=== PATIENT | female | born 1945 | race Caucasian/White ===

== ENCOUNTER → 2018-12-26 11:20 | Outpatient (CLI) | payer SELFPAY ==
[2018-12-26 10:48] VITALS: BMI 35.9
[2018-12-26 13:48] LABS: AST(SGOT) 34 U/L (15-37); Alanine Aminotransfer ALT/SGPT 35 U/L (13-56); Albumin, Serum 3.6 g/dL (3.2-5.0); Alkaline Phosphatase 60 U/L (45-117); Bilirubin, Direct 0.23 mg/dL (0.00-0.30); Cholesterol 178 mg/dL (200); Globulin 4.9 g/dL (2.2-4.2); High Density Lipoprotein 70 mg/dL; Protein, Total 8.5 g/dL (6.4-8.2); Triglycerides 68 mg/dL; Very Low Density Lipoprotein 14 mg/dL (5-40)
== END ==
PROVIDERS: Family Provider Physician Assistant; PCP Physician Assistant; Referring Provider Internal Medicine Cardiovascular Disease; Visit Provider Internal Medicine Cardiovascular Disease
DX: E78.2 Mixed hyperlipidemia (principal)
CPT/HCPCS: 36415; 80061; 80076

== ENCOUNTER → 2019-06-27 | Outpatient (CLI) | payer OTHER, SELFPAY ==
[2018-12-26 10:48] VITALS: BMI 35.9
[2019-06-27 08:53] LABS: AST(SGOT) 19 U/L (15-37); Alanine Aminotransfer ALT/SGPT 20 U/L (13-56); Albumin, Serum 3.2 g/dL (3.2-5.0); Alkaline Phosphatase 58 U/L (45-117); Bilirubin, Direct 0.18 mg/dL (0.00-0.30); Cholesterol 158 mg/dL (200); Globulin 4.8 g/dL (2.2-4.2); High Density Lipoprotein 52 mg/dL; Triglycerides 93 mg/dL; Very Low Density Lipoprotein 19 mg/dL (5-40)
== END | disposition home or self-care (01) ==
LOC: LAB 07:45
PROVIDERS: Family Provider Physician Assistant; PCP Physician Assistant; Referring Provider Internal Medicine Cardiovascular Disease; Visit Provider Internal Medicine Cardiovascular Disease
DX: E07.89 Other specified disorders of thyroid (principal); E78.5 Hyperlipidemia, unspecified; I10 Essential (primary) hypertension; I48.2 Chronic atrial fibrillation; I63.9 Cerebral infarction, unspecified; Z86.73 Personal history of transient ischemic attack (TIA), and cerebral infarction without residual deficits
CPT/HCPCS: 36415; 80061; 80076

== ENCOUNTER → 2020-06-25 07:53 | Outpatient (CLI) | payer OTHER, SELFPAY ==
[2019-06-27 09:13] VITALS: BMI 34.5
[2020-06-25 09:45] LABS: AST(SGOT) 21 U/L (15-37); Alanine Aminotransfer ALT/SGPT 16 U/L (13-56); Albumin, Serum 3.3 g/dL (3.2-5.0); Alkaline Phosphatase 60 U/L (45-117); Bilirubin, Direct 0.16 mg/dL (0.00-0.30); Cholesterol 176 mg/dL (200); Globulin 4.7 g/dL (2.2-4.2); High Density Lipoprotein 64 mg/dL; Triglycerides 83 mg/dL; Very Low Density Lipoprotein 17 mg/dL (5-40)
[2020-06-25 16:36] LABS: T4 Free Direct 1.27 ng/dL (0.76-1.46); Thyroid Stim Hormone (TSH) 5.88 uIU/mL (0.358-3.74)
== END ==
PROVIDERS: PCP Physician Assistant; Referring Provider Internal Medicine Cardiovascular Disease; Visit Provider Internal Medicine Cardiovascular Disease
DX: E78.5 Hyperlipidemia, unspecified (principal)
CPT/HCPCS: 36415; 80061; 80076; 84439; 84443

== ENCOUNTER → 2020-10-30 09:23 | Outpatient (CLI) | payer OTHER, SELFPAY ==
[2020-07-09 13:21] VITALS: BMI 31.2
[2020-10-30 13:02] LABS: Free T3 2.4 pg/mL (2.18-3.98); T4 Free Direct 1.23 ng/dL (0.76-1.46); Thyroid Stim Hormone (TSH) 7.04 uIU/mL (0.358-3.74)
== END ==
LOC: IMMUN 09:24 → LAB 13:43
PROVIDERS: PCP Physician Assistant; Visit Provider Internal Medicine
DX: E03.9 Hypothyroidism, unspecified (principal)
CPT/HCPCS: 36415; 84439; 84443; 84481

== ENCOUNTER → 2020-12-09 11:23 | Outpatient (CLI) | payer OTHER, SELFPAY ==
[2020-07-09 13:21] VITALS: BMI 31.2
[2020-12-09 13:40] LABS: Thyroid Stim Hormone (TSH) 2.63 uIU/mL (0.358-3.74)
== END ==
PROVIDERS: PCP Physician Assistant; Visit Provider Internal Medicine
DX: E03.9 Hypothyroidism, unspecified (principal)
CPT/HCPCS: 36415; 84443

== ENCOUNTER → 2021-07-08 11:37 | Outpatient (CLI) | payer SELFPAY ==
[2021-07-08 15:44] LABS: Free T3 2.5 pg/mL (2.18-3.98); T4 Free Direct 1.33 ng/dL (0.76-1.46); Thyroid Stim Hormone (TSH) 3.14 uIU/mL (0.358-3.74)
== END ==
PROVIDERS: PCP Internal Medicine; Referring Provider Internal Medicine; Visit Provider Internal Medicine
DX: E03.9 Hypothyroidism, unspecified (principal)
CPT/HCPCS: 36415; 84439; 84443; 84481

== ENCOUNTER 2022-01-07 10:42 | Outpatient (CLI) | payer SELFPAY ==
[2022-01-07 12:24] LABS: Absolute Lymphocyte Count 0.62 X10^3/uL (0.83-4.51); Absolute Neutrophil Count 4.6 X10^3/uL (2.0-7.7); Basophil# 0.03 X10^3/uL; Basophil% 0.5 % (0-1); Eosinophil# 0.07 X10^3/uL; Eosinophils% 1.2 % (0-5); Hematocrit 42.3 % (37-47); Hemoglobin 13.7 g/dL (12.0-15.0); Lymphocyte # 0.62 X10^3/ul (0.83-4.51); Lymphocyte % 10.5 % (19-41); Mean Corp Hgb Conc 32.4 g/dL (32-36); Mean Corpuscular Hgb 29.8 pg (27.0-32.0); Mean Platelet Vol. 10.7 fl (6.2-12.0); Monocyte% 10.2 % (0-10); NRBC Flagged by Analyzer 0 % (0-5); Neutrophil # 4.55 X10^3/uL (2.7-7.7); Neutrophil % 77.3 % (47-70); Platelet Count 323 K/mm3 (150-450); RBC Distribution Width CV 13.8 % (11.6-14.6); White Blood Count 5.9 K/mm3 (4.4-11.0)
[2022-01-07 12:43] LABS: Vitamin D,25 Hydroxy 41.1 ng/mL
[2022-01-07 13:15] LABS: ALB/GLOB Ratio 0.7 RATIO (0.9-2.4); AST(SGOT) 18 U/L (15-37); Alanine Aminotransfer ALT/SGPT 22 U/L (13-56); Albumin, Serum 3.3 g/dL (3.2-5.0); Alkaline Phosphatase 62 U/L (45-117); Anion Gap 5 (5-15); BUN 15 mg/dL (7-18); BUN/Creat Ratio 17.1 RATIO (10-20); Calcium,Total 9.5 mg/dL (8.5-10.1); Chloride 100 mmol/L (98-107); Creatinine, Serum 0.88 mg/dL (0.55-1.02); EST Glomerular Filtration Rate 66 mL/min (>60); Est Glom Filt Rate - Afr Amer 80 mL/min (>60); Free T3 2.5 pg/mL (2.18-3.98); Globulin 4.9 g/dL (2.2-4.2); Glucose 96 mg/dL (74-106); Potassium 4.6 mmol/L (3.5-5.1); Protein, Total 8.2 g/dL (6.4-8.2); Sodium Level 134 mmol/L (136-145); T4 Free Direct 1.31 ng/dL (0.76-1.46)
== END 2022-01-07 23:59 | disposition home or self-care (01) ==
LOC: BIMLAB 10:42
PROVIDERS: PCP Internal Medicine; Referring Provider Internal Medicine; Visit Provider Internal Medicine
DX: I48.11 Longstanding persistent atrial fibrillation (principal); I10 Essential (primary) hypertension; E78.5 Hyperlipidemia, unspecified; E03.9 Hypothyroidism, unspecified; Z86.73 Personal history of transient ischemic attack (TIA), and cerebral infarction without residual deficits
CPT/HCPCS: 36415; 80053; 82306; 84439; 84443; 84481; 85025

== ENCOUNTER → 2022-07-13 | Outpatient (CLI) | payer OTHER, SELFPAY ==
[2022-07-13 10:53] LABS: Absolute Lymphocyte Count 0.91 X10^3/uL (0.83-4.51); Absolute Neutrophil Count 6.4 X10^3/uL (2.0-7.7); Basophil# 0.05 X10^3/uL; Basophil% 0.6 % (0-1); Eosinophil# 0.09 X10^3/uL; Eosinophils% 1.1 % (0-5); Hematocrit 38.7 % (37-47); Hemoglobin 12.6 g/dL (12.0-15.0); Lymphocyte # 0.91 X10^3/ul (0.83-4.51); Lymphocyte % 11.1 % (19-41); Mean Corp Hgb Conc 32.6 g/dL (32-36); Mean Corpuscular Hgb 29.9 pg (27.0-32.0); Mean Corpuscular Volume 91.9 fL (81-99); Mean Platelet Vol. 9.7 fl (6.2-12.0); Monocyte# 0.69 X10^3/uL; Monocyte% 8.4 % (0-10); NRBC Flagged by Analyzer 0 % (0-5); Neutrophil # 6.41 X10^3/uL (2.7-7.7); Neutrophil % 78.6 % (47-70); Platelet Count 371 K/mm3 (150-450); RBC Distribution Width CV 14.4 % (11.6-14.6); RBC Distribution Width SD 47.8 fl (35.1-43.9); Red Blood Count 4.21 M/mm3 (4.2-5.4); White Blood Count 8.2 K/mm3 (4.4-11.0)
[2022-07-13 11:24] LABS: ALB/GLOB Ratio 0.6 RATIO (0.9-2.4); AST(SGOT) 18 U/L (15-37); Alanine Aminotransfer ALT/SGPT 17 U/L (13-56); Alkaline Phosphatase 52 U/L (45-117); Anion Gap 5 (5-15); BUN 25 mg/dL (7-18); BUN/Creat Ratio 30.7 RATIO (10-20); Calcium,Total 9.1 mg/dL (8.5-10.1); Chloride 102 mmol/L (98-107); Creatinine, Serum 0.82 mg/dL (0.55-1.02); EST Glomerular Filtration Rate 72 mL/min (>60); Est Glom Filt Rate - Afr Amer 87 mL/min (>60); Free T3 2.5 pg/mL (2.18-3.98); Globulin 5.1 g/dL (2.2-4.2); Glucose 94 mg/dL (74-106); Potassium 4.3 mmol/L (3.5-5.1); Protein, Total 8.1 g/dL (6.4-8.2); Sodium Level 136 mmol/L (136-145); T4 Free Direct 1.19 ng/dL (0.76-1.46); Thyroid Stim Hormone (TSH) 3.26 uIU/mL (0.358-3.74)
== END | disposition home or self-care (01) ==
LOC: LAB 09:53
PROVIDERS: PCP Internal Medicine; Referring Provider Internal Medicine; Visit Provider Internal Medicine
DX: I48.11 Longstanding persistent atrial fibrillation (principal); I10 Essential (primary) hypertension; E78.5 Hyperlipidemia, unspecified; E03.9 Hypothyroidism, unspecified; Z86.73 Personal history of transient ischemic attack (TIA), and cerebral infarction without residual deficits
CPT/HCPCS: 36415; 80053; 84439; 84443; 84481; 85025

== ENCOUNTER → 2023-06-30 | Outpatient (CLI) | payer OTHER, SELFPAY ==
[2023-06-30 12:33] LABS: Absolute Lymphocyte Count 0.82 X10^3/uL (0.83-4.51); Absolute Neutrophil Count 3.9 X10^3/uL (2.0-7.7); Basophil# 0.04 X10^3/uL; Basophil% 0.7 % (0-1); Eosinophils% 1.8 % (0-5); Hematocrit 41.1 % (37-47); Hemoglobin 12.9 g/dL (12.0-15.0); Lymphocyte # 0.82 X10^3/ul (0.83-4.51); Lymphocyte % 14.8 % (19-41); Mean Corp Hgb Conc 31.4 g/dL (32-36); Mean Corpuscular Hgb 30.6 pg (27.0-32.0); Mean Corpuscular Volume 97.4 fL (81-99); Mean Platelet Vol. 10.7 fl (6.2-12.0); Monocyte# 0.65 X10^3/uL; Monocyte% 11.7 % (0-10); NRBC Flagged by Analyzer 0 % (0-5); Neutrophil # 3.92 X10^3/uL (2.7-7.7); Neutrophil % 70.6 % (47-70); Platelet Count 305 K/mm3 (150-450); RBC Distribution Width CV 13.1 % (11.6-14.6); RBC Distribution Width SD 46.1 fl (35.1-43.9); Red Blood Count 4.22 M/mm3 (4.2-5.4); White Blood Count 5.6 K/mm3 (4.4-11.0)
[2023-06-30 12:58] LABS: Vitamin D,25 Hydroxy 39.4 ng/mL
[2023-06-30 13:00] LABS: ALB/GLOB Ratio 0.7 RATIO (0.9-2.4); AST(SGOT) 16 U/L (15-37); Alanine Aminotransfer ALT/SGPT 17 U/L (13-56); Albumin, Serum 3.2 g/dL (3.2-5.0); Alkaline Phosphatase 50 U/L (45-117); Anion Gap 3 (5-15); BUN 22 mg/dL (7-18); BUN/Creat Ratio 20.8 RATIO (10-20); Calcium,Total 9.1 mg/dL (8.5-10.1); Chloride 103 mmol/L (98-107); Cholesterol 175 mg/dL (200); Creatinine, Serum 1.06 mg/dL (0.55-1.02); EST Glomerular Filtration Rate 53 mL/min (>60); Est Glom Filt Rate - Afr Amer 64 mL/min (>60); Free T3 2.2 pg/mL (2.18-3.98); Globulin 4.3 g/dL (2.2-4.2); Glucose 84 mg/dL (74-106); High Density Lipoprotein 52 mg/dL; Potassium 4.3 mmol/L (3.5-5.1); Protein, Total 7.5 g/dL (6.4-8.2); Sodium Level 136 mmol/L (136-145); T4 Free Direct 1.28 ng/dL (0.76-1.46); Thyroid Stim Hormone (TSH) 3.05 uIU/mL (0.358-3.74); Triglycerides 77 mg/dL; Very Low Density Lipoprotein 15 mg/dL (5-40)
== END | disposition home or self-care (01) ==
PROVIDERS: PCP Internal Medicine; Referring Provider Internal Medicine; Visit Provider Internal Medicine
DX: I48.11 Longstanding persistent atrial fibrillation (principal); I10 Essential (primary) hypertension; E78.5 Hyperlipidemia, unspecified; E03.9 Hypothyroidism, unspecified; E55.9 Vitamin D deficiency, unspecified; Z86.73 Personal history of transient ischemic attack (TIA), and cerebral infarction without residual deficits
CPT/HCPCS: 36415; 80053; 80061; 82306; 84439; 84443; 84481; 85025

== ENCOUNTER 2024-01-09 08:30 | Emergency (ER) | payer OTHER, MEDICARE, SELFPAY ==
[2024-01-09] VITALS (10 sets, daily range): BP systolic 61–130; BP diastolic 30–64; PULSE 71–107; RESP 16–30; TEMP 35.9–36.6; O2SAT 23–98; BMI 32.3
--- NOTE | 2024-01-09 08:38 | CT_ITS ---
HISTORY: altered LOC. TECHNIQUE: Multiple axial images were obtained of the head without intravenous contrast. A radiation dose optimization technique was used for this scan. 231 images. COMPARISON: None. FINDINGS: BRAIN PARENCHYMA: Chronic small vessel ischemic gliosis present. Small chronic right frontal parietal, left frontal, and cerebellar infarcts. No acute intra-axial hemorrhage. CSF SPACES: Generalized volume loss. No midline shift or other significant mass effect. No acute extra-axial hemorrhage. OTHER: Intact calvarium. No significant air fluid levels in the paranasal sinuses or mastoid air cells. Bilateral lens resections. CT/Brain/Head without Contrast IMPRESSION: No acute intracranial process identified. Chronic involutional and white matter changes. Old bilateral infarcts. Electronically Signed: Jenae Barnes MD at 9:37 EDT ,
--- NOTE | 2024-01-09 08:39 | EKG12_ITS ---
Test Reason : Blood Pressure : / mmHG Vent. Rate : 099 BPM Atrial Rate : 000 BPM P-R Int : 000 ms QRS Dur : 078 ms QT Int : 386 ms P-R-T Axes : 000 022 003 degrees QTc Int : 495 ms Atrial fibrillation with premature ventricular or aberrantly conducted complexes Prolonged QT Abnormal ECG PROMINENT U WAVE Confirmed by Garret Donnelly ([id number]), newspaper editor RAMA BUTCHER ([id number]) on 01/11/2024 9:08:04 AM Referred By: KATINA Confirmed By:Garret Donnelly
--- NOTE | 2024-01-09 08:40 | EX.ED.DYSGE1 ---
HPI History of Present Illness Chief Complaint: Alt LOC Informant: patient and EMS Narrative Narrative: Patient lives alone and apparently had a fall today, called her family, they came over found her ill weak tired. Right now that is the patient's main complaint that she is just very tired. She denies any pain anywhere. EMS reports that family told them she felt only because the patient told them that she fell. They did not see any signs of injury, when they first evaluated her she appeared fatigued and had actually an elevated blood pressure but as they transported her here, she became hypotensive and hypoxic. There are no other known details. Patient states she had a bowel movement sometime recently but when asked about its consistency or contents, she asks us to ask her vice president investor relations who was not present. She cannot give us any history about recent illness, she denies having any pain anywhere. History is limited due to her being lethargic. [facility] Medical History Arthritis Biatrial enlargement Cataract (lens) fragments in eye following cataract surgery, bilateral Essential (primary) hypertension History of CVA (cerebrovascular accident) (10/2016) Hyperlipidemia Hypothyroidism Longstanding persistent atrial fibrillation Obesity (BMI 30.0-34.9) Seasonal allergies Thyroid mass of unclear etiology Home Medications diltiazem HCl 120 mg capsule,extended release 24 hr 120 mg PO DAILY #90 caps 01/18/23 [Rx Last Taken 01/09/24] levothyroxine 25 mcg tablet 25 mcg PO DAILY #90 tabs 01/18/23 [Rx Last Taken 01/09/24] lisinopril 2.5 mg tablet 2.5 mg PO DAILY #90 tabs 01/18/23 [Rx Last Taken 01/09/24] apixaban 5 mg tablet (Eliquis) 5 mg PO BID #180 tabs 11/08/23 [Rx Last Taken 01/09/24] Allergy/AdvReac Type Severity Reaction Status Date / Time No Known Allergies Allergy Verified 11/02/23 11:30 Family History Father No problems noted. Surgical History History of tonsillectomy and adenoidectomy Social History Smoking Status: Never smoker alcohol intake: never substance use type: does not use caffeine: Yes Type: coffee and tea what type of physical activity do you participate in: none seatbelt use: always do you feel safe at home: Yes ROS ROS ED Review of Systems ROS Unobtainable: other Details: Very limited due to lethargy Constitutional Constitutional ED: Reports fatigue and weakness; Denies headache(s) Cardiovascular Cardiovascular: Denies chest pain Respiratory/Chest Respiratory/Chest: Denies dyspnea Gastrointestinal Gastrointestinal: Denies abdominal pain or nausea Musculoskeletal Musculoskeletal: Denies back pain or neck pain Neurologic Neurologic: Denies headache(s) EXAM Physical Exam Const Vital Signs: 01/09/24 08:31 01/09/24 08:34 01/09/24 08:42 Temperature 97.0 F L Temperature Source Temporal Pulse Rate 87 71 Respiratory Rate 18 Blood Pressure 61/40 L Blood Pressure Mean 47 Blood Pressure Source Blood Pressure Position Blood Pressure Location Pulse Ox 93 96 Oxygen Delivery Method Nasal Cannula Nasal Cannula Oxygen Flow Rate (L/min) 3 3 Fraction of Inspired Oxygen (FIO2) 01/09/24 09:02 01/09/24 10:00 01/09/24 11:00 Temperature 96.6 F L Temperature Source Temporal Pulse Rate 83 92 89 Respiratory Rate 26 H 30 H 16 Blood Pressure 84/33 L 91/30 L 80/50 L Blood Pressure Mean 50 50 60 Blood Pressure Source Blood Pressure Position Blood Pressure Location Pulse Ox 23 92 Oxygen Delivery Method Room Air Nasal Cannula Oxygen Flow Rate (L/min) 3 Fraction of Inspired Oxygen (FIO2) 96.7 01/09/24 12:58 01/09/24 13:00 Temperature 97.2 F L 97.2 F L Temperature Source Temporal Temporal Pulse Rate 99 97 Respiratory Rate 22 H 19 H Blood Pressure 123/54 H 116/64 Blood Pressure Mean 77 81 Blood Pressure Source Monitor Blood Pressure Position Supine Blood Pressure Location Right Arm Pulse Ox 92 92 Oxygen Delivery Method Nasal Cannula Nasal Cannula Oxygen Flow Rate (L/min) 3 Fraction of Inspired Oxygen (FIO2) Positive well nourished and well developed Constitutional Narrative: Lethargic but responds to commands and opens her eyes to voice. General Appearance ED: well developed HEENT Reports TM's clear and nasal mucous membranes and turbinates normal HEENT Narrative: Does not open mouth enough to allow visualization of posterior oropharynx. Lips appear little dry but oral mucous membranes appear moist. No Carey sign. No signs of head trauma. No periorbital ecchymosis or CSF otorhinorrhea. atraumatic Face and Sinus: Negative for facial tenderness Tympanic Membrane ED: Yes TM's clear Eyes PERRL and EOMs intact bilaterally Visual Acuity: other Other Details: no entrapment or pain with extraocular movements Neck full ROM and supple General: Negative for tenderness Chest Wall inspection of chest normal and palpation of chest normal Chest: symmetrical chest wall rise; Negative for crepitus or tenderness Resp normal respiratory effort and clear to auscultation bilaterally Percussion: other equal BS bilat Cardio no murmurs Rhythm: abnormal rhythm irregularly irregular (Without tachycardia) GI normal to inspection, nondistended, normoactive bowel sounds, soft to palpation and non-tender GI Narrative: Rectal nontender good tone. Watery light brown stool specimen sent for Hemoccult. No blood or melena. Back/Spine normal ROM Back/Spine Narrative: No overt signs of trauma normal inspection Cervical Spine: Negative for cervical spine tenderness Thoracic Spine / Upper Back: Negative for thoracic spinal tenderness Lumbar Spine / Lower Back: Negative for lumbar spinal tenderness Extremity normal to inspection and full ROM General Extremety ED: Negative for tenderness Neuro CN's II-XII intact bilaterally, moves all extremities, no focal motor deficits and no sensory deficits noted Neuro Narrative: Moves all 4 extremities symmetrically but extremely weak. Does not talk in sentences, couple words at a time but her responses are appropriate. Jani Coma Scale: document GCS findings To Voice Obeys Commands Confused 13 Sensorium / Orientation: awake, alert and lethargic Psych mental status grossly normal and thought process normal Skin no wounds Lesions: no lesions Rashes: no rashes MDM MDM MDM Narrative Medical decision making narrative: Patient is breathing well, hypoxic on room air but we have her on the 3 L nasal cannula she is 93% but hypotensive 61/40, in A-fib according to the monitor and my interpretation of her EKG which shows no acute injury pattern, occasional PVCs, and she appears rate controlled not bradycardic or tachycardic. I am having nurses placed to IV lines and bolus her with a liter of IV fluid in each line while we are performing septic workup. Basically patient has a leukocytosis, mild anemia, lactic acidosis with an anion gap as a result, mild ARLEEN but not necessarily consistent with major dehydration, and no evidence of infection. One-view portable chest x-ray normal in my interpretation, urinalysis negative for infection, COVID/influenza/RSV swab negative. I did a CT of her head given her altered mental status and anticoagulant use to rule out intracranial hemorrhage, I reviewed the images and the report which I agree with, it is negative for anything acute. Given all of this, we were given her IV fluids, a patient field care coordinator got her up to the bedside commode, and she was orthostatic. She had responded to the fluids with regards to her blood pressure initially, but then she dropped to 80/50. She is getting another liter of fluids, now she is 111/91. I then ordered CT scanning of the chest, abdomen, pelvis with IV contrast. I reviewed the images, it does show an abnormal spleen and either hemoperitoneum or free fluid, I was not sure if this was due to trauma or related to some type of infection with splenic enlargement, I received a call from radiology telling me that it appears to be a grade 5 splenic injury with hemoperitoneum. I confirmed with the niece vice president investor relations now at the bedside that the patient rang her dickinson because she had fallen this morning, the niece did not witness it but then came to her attention and found her on her buttocks and she said that she had simply fallen onto her buttocks and had no other major injury. She had no major signs of injury here, but evaluating her now, she is having abdominal pain, and her left upper quadrant is very tender, which was not on my initial evaluation. Given this knowledge now, I have ordered PCC, vitamin K 10 mg IV, and a unit of trauma blood after confirming with the patient and her vice president investor relations that she verbally consents to get a blood transfusion which I recommend given the situation. We also discussed the preferred trauma center, they prefer [facility]. Patient and family understand the implications of what is going on here as this is immediately life-threatening. Excepted to the ER by Dr. Alexander, Helicopter en-route. Lab Data Attestation: I reviewed the patient's lab results. Labs: Laboratory Results - last 24 hr 01/09/24 01/09/24 01/09/24 08:55 09:45 10:08 WBC 14.2 H RBC 3.49 L Hgb 10.1 L Hct 32.9 L MCV 94.3 MCH 28.9 MCHC 30.7 L RDW Std Deviation 49.7 H RDW Coeff of Storm 14.4 Plt Count 229 MPV 10.4 Immature Gran % (Auto) 1.000 H Neut % (Auto) 79.2 H Lymph % (Auto) 10.1 L [place] % (Auto) 8.3 Eos % (Auto) 0.8 Baso % (Auto) 0.6 Absolute Neuts (auto) 11.3 H Absolute Lymphs (auto) 1.44 Nucleated RBC % 0 PT Cancelled 18.6 H INR Cancelled 1.6 APTT Cancelled 30.0 Sodium 138 Potassium 4.1 Chloride 109 H Carbon Dioxide 16.0 L Anion Gap 13 BUN 27 H Creatinine 1.35 H Estim Creat Clear Calc 30.57 Est GFR (MDRD) Af Amer 49 L Est GFR (MDRD) Non-Af 40 L BUN/Creatinine Ratio 20.0 Glucose 139 H Lactic Acid 7.6 H* Calcium 8.7 Total Bilirubin 0.40 AST 35 ALT 18 Alkaline Phosphatase 56 Total Creatine Kinase 62 Troponin I High Sens 47 Total Protein 7.0 Albumin 2.6 L Globulin 4.4 H Albumin/Globulin Ratio 0.6 L Cortisol 83.00 H Urine Color Yellow Urine Clarity Clear Urine pH 8.0 Ur Specific [place] 1.010 Urine Protein 30 H Urine Glucose (UA) 50 H Urine Ketones Negative Urine Occult Blood 10 H Urine Nitrite Negative Urine Bilirubin Negative Urine Urobilinogen Normal Ur Leukocyte Esterase Negative Urine RBC 0 SEEN Urine WBC 0 SEEN Ur Squamous Epith Cells 0-5 SEEN Urine Bacteria 0 SEEN Hyaline Casts 0-5 SEEN Urine Mucus 0 SEEN Crossmatch 01/09/24 13:00 WBC RBC Hgb 9.2 L Hct 29.0 L MCV MCH MCHC RDW Std Deviation RDW Coeff of Storm Plt Count MPV Immature Gran % (Auto) Neut % (Auto) Lymph % (Auto) [place] % (Auto) Eos % (Auto) Baso % (Auto) Absolute Neuts (auto) Absolute Lymphs (auto) Nucleated RBC % PT INR APTT Sodium Potassium Chloride Carbon Dioxide Anion Gap BUN Creatinine Estim Creat Clear Calc Est GFR (MDRD) Af Amer Est GFR (MDRD) Non-Af BUN/Creatinine Ratio Glucose Lactic Acid Calcium Total Bilirubin AST ALT Alkaline Phosphatase Total Creatine Kinase Troponin I High Sens Total Protein Albumin Globulin Albumin/Globulin Ratio Cortisol Urine Color Urine Clarity Urine pH Ur Specific [place] Urine Protein Urine Glucose (UA) Urine Ketones Urine Occult Blood Urine Nitrite Urine Bilirubin Urine Urobilinogen Ur Leukocyte Esterase Urine RBC Urine WBC Ur Squamous Epith Cells Urine Bacteria Hyaline Casts Urine Mucus Crossmatch See Detail Radiography Diagnostic Testing: Clinical Impression(s) from Imaging Studies Brain CT 01/09/24 08:38 IMPRESSION: No acute intracranial process identified. Chronic involutional and white matter changes. Old bilateral infarcts. Electronically Signed: Jenae Barnes MD at 9:37 EDT Reading Location ID and State: [email or web address] / [place] Tel , Service support , Chest X-Ray 01/09/24 10:00 IMPRESSION: Mild bibasilar atelectasis or inflammation. Electronically Signed: Jenae Barnes MD at 10:25 EDT Reading Location ID and State: [email or web address] / [place] Tel , Service support , Chest/Abdomen/Pelvis CT 01/09/24 11:19 IMPRESSION: Grade 5 splenic injury with a shattered and largely devascularized spleen, large pseudoaneurysm, and multiple sites of active intrasplenic and intraperitoneal contrast extravasation. Moderate-severe hemoperitoneum. Discussed with Dr. Ray at time of dictation. Bilateral adrenal enlargement, which may be secondary to shock or hyperplasia. 2 mm hypodensity in the left hepatic lobe, too small to characterize but favor a benign rather than traumatic etiology. Cystic lesions of the pancreas likely chronic. Consider follow-up. No evidence for acute intrathoracic trauma. N.B. : The above Results were Read Back by Jenae Barnes MD to Franck Ray MD, and understanding confirmed on 01/09/2024 12:43:38 (ET). Electronically Signed: Jenae Barnes MD at 13:03 EDT Reading Location ID and State: [email or web address] / [place] Tel , Service support , ADDENDUM: 01/09/24 1310 IMPRESSION: Grade 5 splenic injury with a shattered and largely devascularized spleen, large pseudoaneurysm, and multiple sites of active intrasplenic and intraperitoneal contrast extravasation. Moderate-severe hemoperitoneum. Discussed with Dr. Ray at time of dictation. Bilateral adrenal enlargement, which may be secondary to shock or hyperplasia. 2 mm hypodensity in the left hepatic lobe, too small to characterize but favor a benign rather than traumatic etiology. Cystic lesions of the pancreas likely chronic. Consider follow-up. No evidence for acute intrathoracic trauma. N.B. : The above Results were Read Back by Jenae Barnes MD to Franck Ray MD, and understanding confirmed on 01/09/2024 12:43:38 (ET). Electronically Signed: Jenae Barnes MD at 13:03 EDT , Rhythm Strip Rhythm Strip: A-fib Rate: 85 Ectopy: PVC(s) EKG Initial EKG: Attestation: I personally reviewed and interpreted this EKG as follows: Interpretation: No Acute Injury Pattern, Atrial Fibrillation and Non-Specific ST Changes Prior EKG tracings: available for review Prior: Unchanged Management Discussion w/another healthcare provider: Tire Builder Operator and Radiologist Critical Care Time Critical Care Time: Yes Critical care time (excluding procedures): 30-74 minutes (48 min), Including time spent:, Discussing w/Patient &/or Family/Registration Coordinator, Discussing w/Consultants, Arranging Admission or Transfer and Performing Direct Patient Care at Bedside Discharge Plan Triage Chief Complaint: Alt LOC ED Provider: Franck Ray Dx/Rx/DC Orders Clinical Impression: Traumatic rupture of spleen, Anticoagulated, Hemorrhagic shock, ABLA (acute blood loss anemia), Fall, Longstanding persistent atrial fibrillation Prescriptions: No Action diltiazem HCl 120 mg capsule,extended release 24hr 120 mg PO DAILY Qty: 90 3RF levothyroxine 25 mcg tablet 25 mcg PO DAILY Qty: 90 3RF lisinopril 2.5 mg tablet 2.5 mg PO DAILY Qty: 90 3RF Eliquis 5 mg tablet 5 mg PO BID Qty: 180 4RF Patient Comments: blood thinner Primary Care Provider: Adri Taylor Referrals: Adri Taylor MD [Primary Care Provider] - Disposition Disposition: Acute Care Hospital Discharge Location: [facility]
[2024-01-09] MEDS: 0.9% Normal Saline (1000mL) 2,000 ML 999 ML IV (09:01)
[2024-01-09 09:12] LABS: Absolute Lymphocyte Count 1.44 X10^3/uL (0.83-4.51); Absolute Neutrophil Count 11.3 X10^3/uL (2.0-7.7); Basophil# 0.08 X10^3/uL; Basophil% 0.6 % (0-1); Eosinophil# 0.12 X10^3/uL; Eosinophils% 0.8 % (0-5); Hematocrit 32.9 % (37-47); Hemoglobin 10.1 g/dL (12.0-15.0); Lymphocyte # 1.44 X10^3/ul (0.83-4.51); Lymphocyte % 10.1 % (19-41); Mean Corp Hgb Conc 30.7 g/dL (32-36); Mean Corpuscular Hgb 28.9 pg (27.0-32.0); Mean Corpuscular Volume 94.3 fL (81-99); Mean Platelet Vol. 10.4 fl (6.2-12.0); Monocyte# 1.18 X10^3/uL; Monocyte% 8.3 % (0-10); NRBC Flagged by Analyzer 0 % (0-5); Neutrophil # 11.27 X10^3/uL (2.7-7.7); Neutrophil % 79.2 % (47-70); Platelet Count 229 K/mm3 (150-450); RBC Distribution Width CV 14.4 % (11.6-14.6); RBC Distribution Width SD 49.7 fl (35.1-43.9); Red Blood Count 3.49 M/mm3 (4.2-5.4); White Blood Count 14.2 K/mm3 (4.4-11.0)
[2024-01-09 09:31] LABS: ALB/GLOB Ratio 0.6 RATIO (0.9-2.4); AST(SGOT) 35 U/L (15-37); Alanine Aminotransfer ALT/SGPT 18 U/L (13-56); Albumin, Serum 2.6 g/dL (3.2-5.0); Alkaline Phosphatase 56 U/L (45-117); Anion Gap 13 (5-15); BUN 27 mg/dL (7-18); CPK Total, Creatine Kinase 62 U/L (26-192); Calcium,Total 8.7 mg/dL (8.5-10.1); Chloride 109 mmol/L (98-107); Creatinine, Serum 1.35 mg/dL (0.55-1.02); EST Glomerular Filtration Rate 40 mL/min (>60); Est Glom Filt Rate - Afr Amer 49 mL/min (>60); Estimated Creatinine Clearance 30.57 ml/min; Globulin 4.4 g/dL (2.2-4.2); Glucose 139 mg/dL (74-106); Potassium 4.1 mmol/L (3.5-5.1); Sodium Level 138 mmol/L (136-145); Troponin-I HS 47 pg/mL (3.0-54.0)
[2024-01-09 09:44] LABS: Lactic Acid 7.6 mmol/L (0.4-1.9)
--- NOTE | 2024-01-09 10:00 | RAD_ITS ---
HISTORY: altered LOC. TECHNIQUE: XR Chest 1 View. COMPARISON: None. FINDINGS: CARDIOMEDIASTINAL BORDERS: Cardiac silhouette mildly enlarged. Mediastinal contour unremarkable with calcification of the aorta. LUNGS: Mild linear bibasilar opacities. PLEURA: No pleural effusion or pneumothorax seen. OSSEOUS STRUCTURES: Advanced arthritis of the bilateral shoulders with glenohumeral remodeling and high riding humeral head from chronic rotator cuff tears. RAD/Chest 1 View (Portable) IMPRESSION: Mild bibasilar atelectasis or inflammation. Electronically Signed: Jenae Barnes MD at 10:25 EDT ,
[2024-01-09 10:12] LABS: Bacteria 0 SEEN /hpf (None Seen); Mucous, Urine 0 SEEN /hpf (<or=2+); Red Blood Cells-Urine 0 SEEN /hpf (0-5); White Blood Cells 0 SEEN /hpf (0-5)
[2024-01-09 10:28] LABS: Color, Urine Yellow (Yellow); Glucose, Dipstick 50 mg/dl (Normal); Ketone-Dipstick Negative (Negative); Leukocyte Esterase-Dipstick Negative /ul (Negative); Nitrite-Dipstick Negative (Negative); Occult Blood-Urine 10 /ul (Negative); Protein-Dipstick 30 mg/dl (Negative); Urine Bilirubin Dipstick Negative (Negative); Urine Clarity Clear (Clear); Urine Urobilinogen Normal (Normal)
[2024-01-09 10:28] LABS: International Normalized Ratio 1.6; Prothrombin Time (Protime)PT. 18.6 SECONDS (11.7-14.9)
[2024-01-09 10:42] LABS: Hyaline Cast 0-5 SEEN /lpf (0-5); Squamous Epithelial Cells - UA 0-5 SEEN /hpf (5-10)
--- NOTE | 2024-01-09 11:19 | CT_ITS ---
HISTORY: hypotension, fall today, lethargic, left abdominal pain. TECHNIQUE: Helically acquired images were obtained of the chest, abdomen, and pelvis after the intravenous administration of 75 mL Isovue-370. No oral contrast was administered. 2-D reformatted images provided. A radiation dose optimization technique was used for this scan. 1202 images. COMPARISON: XR same day. FINDINGS: ----Chest: LARGE AIRWAYS: Patent. LUNGS: Very mild dependent atelectasis. PLEURA: No pneumothorax or significant pleural effusion. HEART AND PERICARDIUM: Heart upper limits of normal in size, intact appearance. No significant pericardial effusion. VESSELS: No thoracic aortic aneurysm or dissection flap. Atherosclerosis noted. No large central central pulmonary embolism although study not performed with the pulmonary embolism protocol. MEDIASTINUM AND CARLOS: No pathologically enlarged lymph nodes. BONES: Degenerative change and osteopenia. Bilateral shoulder arthritis with synovitis and joint effusions. No acute displaced fracture identified. ----Abdomen/Pelvis: BOWEL: Mild hiatal hernia. Bowel including appendix nondilated. Colonic diverticulosis observed. PERITONEUM: No gross free air. Moderate to large hemoperitoneum extending from the abdomen into the pelvis. LIVER: 2 mm round hypodensity at the periphery of the left lobe , favor small cyst over small laceration. GALLBLADDER/BILIARY TREE: Distended gallbladder. SPLEEN: Shattered spleen with large amount of active perisplenic and interspinous contrast extravasation with a 0.6 cm pseudoaneurysm. PANCREAS: Atrophic with a 2.3 cm cystic lesion of the proximal body 9 mm cyst of the distal body. KIDNEYS: Intact. No hydronephrosis. ADRENAL GLANDS: Bilateral adrenal enlargement, which may be secondary to shock or hyperplasia. VESSELS: No abdominal aortic aneurysm or dissection flap. Mild atherosclerosis. Flattening of the inferior vena cava, compatible with shock and hypotension. PELVIC ORGANS: Grossly unremarkable, obscured by hemoperitoneum. ABDOMINAL WALL: Mild subcutaneous edema over the pelvis. BONES: Degenerative change and mild scoliosis. No acute fracture or dislocation identified. CT/CT Chest, Abd, Pel w/Contrast IMPRESSION: Grade 5 splenic injury with a shattered and largely devascularized spleen, large pseudoaneurysm, and multiple sites of active intrasplenic and intraperitoneal contrast extravasation. Moderate-severe hemoperitoneum. Discussed with Dr. Ray at time of dictation. Bilateral adrenal enlargement, which may be secondary to shock or hyperplasia. 2 mm hypodensity in the left hepatic lobe, too small to characterize but favor a benign rather than traumatic etiology. Cystic lesions of the pancreas likely chronic. Consider follow-up. No evidence for acute intrathoracic trauma. N.B. : The above Results were Read Back by Jenae Barnes MD to Franck Ray MD, and understanding confirmed on 01/09/2024 12:43:38 (ET). Electronically Signed: Jenae Barnes MD at 13:03 EDT ,
[2024-01-09] MEDS: 0.9% Normal Saline (1000mL) 1,000 ML 999 ML IV (11:33)
[2024-01-09] MEDS: Hydrocortisone Sod Succinate 100 MG/2 ML Vial IV (11:35)
[2024-01-09] MEDS: Piperacil/Tazobactam 3.375 GM in 0.9% Normal Saline (50mL MB+) 50 ML IV (11:44)
--- NOTE | 2024-01-09 12:56 | ED.RN ---
Dr. duncan ordered 1 unit trauma blood. Unit #[id number] began infusing at 1258. Per Dr. Duncan run blood over 1.5 hours.
[2024-01-09 13:02] LABS: Reflex Lactate? Y
[2024-01-09 13:06] LABS: Hemoglobin 9.2 g/dL (12.0-15.0)
[2024-01-09] MEDS: HUMAN PROTHROMBIN COMPLX(PCC) 3,500 UNIT in Viaflex Bag 1 BAG 500 UNIT IV (13:33)
[2024-01-09] MEDS: Phytonadione (Vit K) 10 MG in 0.9% Normal Saline (50mL Bag) 50 ML 153 MG IV (13:36)
--- NOTE | 2024-01-09 14:04 | ED.RN ---
THis RN gave report to Sarah at [facility]
--- NOTE | 2024-01-14 17:12 | ED.RN ---
THIS RN RECEIVED INFORMATION FROM LAB, PT WITH ONE BLOOD CULTURE POSITIVE FOR FUNGUS. THIS RN CALLED [facility] WHERE PT WAS TRANSFERRED AND PT HAD BEEN DISCHARGED. THIS RN CALLED RESULTS TO [facility] LABORATORY TECHNICIAN ARTIST MODEL. E[facility] MOLD LABORATORY TECHNICIAN REPORTS THEY WILL FOLLOW UP WITH PATIENT IN THE OFFICE.
== END 2024-01-09 14:04 | disposition short-term general hospital (02) ==
PROVIDERS: Emergency Provider Emergency Medicine; PCP Internal Medicine; Visit Provider Emergency Medicine
DX: D73.5 Infarction of spleen (principal); R57.8 Other shock; I48.11 Longstanding persistent atrial fibrillation; R41.82 Altered mental status, unspecified; D62 Acute posthemorrhagic anemia; Z79.01 Long term (current) use of anticoagulants; Z79.899 Other long term (current) drug therapy; Z86.73 Personal history of transient ischemic attack (TIA), and cerebral infarction without residual deficits; W19.XXXA Unspecified fall, initial encounter
CPT/HCPCS: 70450; 71045; 71260; 74177; 80053; 81001; 82274; 82533; 82550; 83605; 84484; 85014; 85018; 85025; 85610; 85730; 86850; 86900; 86901; 86920; 87040; 87086; 87631; 93005; 96365; 96367; 96375; 99285; J7030; J7168; P9016; Q9967; A4216; J3490

== ENCOUNTER → 2024-04-18 | Outpatient (CLI) | payer SELFPAY, OTHER ==
--- NOTE | 2024-04-18 08:42 | CT_ITS ---
STUDY: CTA CHEST REASON FOR EXAM: Female, 79 years old. Atypical chest pain, history of splenectomy RADIATION DOSAGE (If Supplied By Facility): CTDIvol = ( 10.44 ) mGy, DLP = ( 366.08 ) mGycm TECHNIQUE: The examination was performed with the intravenous administration of IV 100mL Isovue-370. Post-processing of the angiographic images was performed, with multiplanar reformation and 3D reconstruction. Individualized dose optimization techniques were used for this CT. COMPARISON: 01/09/2024 FINDINGS: Normal enhancement of the main pulmonary artery and right and left pulmonary arteries. Normal enhancement of the bilateral peripheral pulmonary arteries. There is no demonstrated pulmonary embolism. Normal thoracic aorta and visualized great vessels. There is no demonstrated aortic dissection. Normal heart and pericardium. No suspicious axillary, mediastinal, or perihilar adenopathy There is peribronchial thickening. The lungs are well expanded. Chronic interstitial changes in both lung oneill with superimposed interstitial edema, free flowing bilateral pleural effusions and bibasilar atelectasis more pronounced in the left hemithorax than the right. Normal chest wall structures. There are degenerative changes of thoracic spine. Normal visualized upper abdomen. CT/CTA Chest W/WO Contrast IMPRESSION: No demonstrated PE, or thoracic aortic aneurysm or dissection Chronic interstitial changes in both lung oneill with superimposed interstitial edema, bilateral pleural effusions and bibasilar atelectasis. Finding suggests CHF. Follow-up recommended to ensure resolution No suspicious adenopathy Chronic bronchitis Degenerative bony changes Electronically Signed: Jonathan Maharaj MD at 12:42 EDT ,
[2024-04-18 09:17] LABS: CREATININE FINGERSTICK < 1.0 mg/dL (0.55-1.02); EGFR FINGERSTICK > 60.0000 mL/min (>60)
== END | disposition home or self-care (01) ==
PROVIDERS: PCP Internal Medicine; Referring Provider Internal Medicine; Visit Provider Internal Medicine
DX: I26.99 Other pulmonary embolism without acute cor pulmonale (principal)
CPT/HCPCS: 71275; Q9967